=== PATIENT | female | born 1950 | race Two or more races ===

== ENCOUNTER 2021-12-11 09:17 | Day surgery (SDC) | payer MEDICARE ==
[2021-12-11] MEDS ORDERED: Depo-Medrol 40 MG/ML IM ONE (09:18)
[2021-12-11] MEDS ORDERED: BUPIVACAINE 0.5% VIAL IJ ONE (09:18)
[2021-12-11] MEDS ORDERED: DIPRIVAN 200 MG/20 ML IV ONE (11:57)
[2021-12-11] MEDS ORDERED: Lactated Ringers 1,000 ML IV ONE (13:36)
--- NOTE | 2021-12-11 13:50 | XRAY ---
Indication: Bilateral SI joint injection. Intraoperative fluoroscopy provided for 23 seconds. 4 digital spot image submitted for interpretation demonstrates posterior needle tip projecting over the inferior left and right SI joint. Correlate with intraoperative findings/report.
--- NOTE | 2021-12-11 14:22 | XRAY ---
23 seconds of fluoroscopy was used in surgery for a bilateral sacroiliac joint injection.
== END 2021-12-11 12:22 | disposition home or self-care (01) ==
LOC: SDC-PAIN 09:17
PROVIDERS: ATTEND Psychiatry & Neurology Pain Medicine
DX: M46.1 Sacroiliitis, not elsewhere classified (principal); E11.9 Type 2 diabetes mellitus without complications; Z79.899 Other long term (current) drug therapy
CPT/HCPCS: 27096; 72202; 77002; 82947; J1030; J2704; G0260

== ENCOUNTER 2022-01-08 09:18 | Day surgery (SDC) | payer MEDICARE ==
[2022-01-08] MEDS ORDERED: Decadron 4 MG INJ IV ONE (09:19)
[2022-01-08] MEDS ORDERED: LIDOCAINE HCL 2% 100 MG/5 ML IJ ONE (09:19)
[2022-01-08] MEDS ORDERED: DIPRIVAN 200 MG/20 ML IV ONE ×2 (10:36→10:57)
[2022-01-08] MEDS ORDERED: Lactated Ringers 1,000 ML IV ONE (11:40)
--- NOTE | 2022-01-08 12:30 | XRAY ---
Indication: Left C2-C4 MBB. Intraoperative fluoroscopy provided for 36 seconds. 4 digital spot images submitted for interpretation demonstrates posterior needle tips projecting over the expected left C2-C4 nerve roots. Correlate with intraoperative findings/report. Incidental partially visualized mid to lower anterior cervical fusion hardware with intervertebral spacers.
--- NOTE | 2022-01-08 12:34 | XRAY ---
36 seconds fluoroscopy time in surgery for left C2-C4 MBB.
== END 2022-01-08 11:33 | disposition home or self-care (01) ==
LOC: SDC-PAIN 09:18
PROVIDERS: ATTEND Psychiatry & Neurology Pain Medicine
DX: M47.812 Spondylosis without myelopathy or radiculopathy, cervical region (principal); E11.9 Type 2 diabetes mellitus without complications
CPT/HCPCS: 64490; 64491; 72040; 77002; 82947; J1100; J2704

== ENCOUNTER 2022-02-05 07:47 | Day surgery (SDC) | payer MEDICARE ==
[2022-02-05] MEDS ORDERED: LIDOCAINE HCL 2% 100 MG/5 ML IJ ONE (08:50)
[2022-02-05] MEDS ORDERED: Depo-Medrol 40 MG/ML IM ONE (08:50)
[2022-02-05] MEDS ORDERED: Lactated Ringers 1,000 ML IV ONE (09:00)
[2022-02-05] MEDS ORDERED: DIPRIVAN 200 MG/20 ML IV ONE (09:05)
--- NOTE | 2022-02-05 11:26 | XRAY ---
Indication: Bilateral L4-S1 MBB. Intraoperative fluoroscopy provided for 17 seconds. Single digital spot image submitted for interpretation demonstrates posterior needle tips projecting over the expected left and right L4-S1 nerve roots. Correlate with intraoperative findings/report.
--- NOTE | 2022-02-05 12:31 | XRAY ---
17 seconds of fluoroscopy was used in surgery for a bilateral L4-S1 MBB.
== END 2022-02-05 09:35 | disposition home or self-care (01) ==
LOC: SDC-PAIN 07:47
PROVIDERS: ATTEND Psychiatry & Neurology Pain Medicine
DX: M47.816 Spondylosis without myelopathy or radiculopathy, lumbar region (principal); E11.9 Type 2 diabetes mellitus without complications; Z79.899 Other long term (current) drug therapy
CPT/HCPCS: 64493; 64494; 72020; 77002; 82947; J1030; J2704

== ENCOUNTER 2022-03-20 09:07 | Day surgery (SDC) | payer MEDICARE ==
[2022-03-20] MEDS ORDERED: Depo-Medrol 40 MG/ML IM ONE (09:08)
[2022-03-20] MEDS ORDERED: BUPIVACAINE 0.5% VIAL IJ ONE (09:08)
[2022-03-20] MEDS ORDERED: Lactated Ringers 1,000 ML IV ONE (10:28)
[2022-03-20] MEDS ORDERED: DIPRIVAN 200 MG/20 ML IV ONE (11:13)
--- NOTE | 2022-03-20 13:37 | XRAY ---
Indication: Bilateral L4-S1 MBB. Intraoperative fluoroscopy provided for 7 seconds. Single digital spot image submitted for interpretation demonstrates posterior needle tips projecting over the expected left and right L4-S1 nerve roots. Correlate with intraoperative findings/report.
--- NOTE | 2022-03-20 13:45 | XRAY ---
7 seconds fluoroscopy time in surgery for bilateral L4-S1 MBB.
== END 2022-03-20 11:38 | disposition home or self-care (01) ==
LOC: SDC-PAIN 09:07
PROVIDERS: ATTEND Psychiatry & Neurology Pain Medicine
DX: M47.816 Spondylosis without myelopathy or radiculopathy, lumbar region (principal); E11.9 Type 2 diabetes mellitus without complications; Z79.899 Other long term (current) drug therapy
CPT/HCPCS: 64493; 64494; 72020; 77002; 82947; J1030; J2704

== ENCOUNTER → 2022-04-02 | Day surgery (SDC) | payer MEDICARE ==
[~2022-04-02] MED LIST: BUPIVACAINE 0.5% VIAL IJ ONE; DIPRIVAN 200 MG/20 ML IV ONE; Depo-Medrol 40 MG/ML IM ONE; Versed 2 MG/2 ML Injection ONE; Xylocaine 1% Vial 30 ML PF IJ ONE; Xylocaine-Mpf 2% 5 Ml Vial ONE
--- NOTE | 2022-04-02 18:25 | XRAY ---
Indication: Right L4-S1 RFA. Intraoperative fluoroscopy provided for 19 seconds. 4 digital spot image submitted for interpretation demonstrates posterior needle tips projecting over the expected right L4-S1 nerve roots. Correlate with intraoperative findings/report.
--- NOTE | 2022-04-02 18:29 | XRAY ---
19 seconds of fluoroscopy was used in surgery for a right L4-S1 RFA.
== END ==
LOC: SDC-PAIN 13:10
PROVIDERS: ATTEND Psychiatry & Neurology Pain Medicine
DX: M47.816 Spondylosis without myelopathy or radiculopathy, lumbar region (principal); E11.9 Type 2 diabetes mellitus without complications; Z79.899 Other long term (current) drug therapy
CPT/HCPCS: 64635; 64636; 72100; 77002; 82947; J1030; J2001; J2250; J2704

== ENCOUNTER 2022-04-09 11:57 | Day surgery (SDC) | payer MEDICARE ==
[2022-04-09] MEDS ORDERED: Xylocaine 1% Vial 30 ML PF IJ ONE (11:58)
[2022-04-09] MEDS ORDERED: BUPIVACAINE 0.5% VIAL IJ ONE (11:58)
[2022-04-09] MEDS ORDERED: Depo-Medrol 40 MG/ML IM ONE (11:58)
[2022-04-09] MEDS ORDERED: Versed 2 MG/2 ML Injection ONE (13:07)
[2022-04-09] MEDS ORDERED: Lactated Ringers 1,000 ML IV ONE (13:57)
[2022-04-09] MEDS ORDERED: DIPRIVAN 200 MG/20 ML IV ONE (14:40)
--- NOTE | 2022-04-09 16:33 | XRAY ---
Indication: Left L4-S1 RFA. Intraoperative fluoroscopy provided for 20 seconds. 3 digital spot image submitted for interpretation demonstrates posterior needle tips projecting over the expected left L4-S1 nerve roots. Correlate with intraoperative findings/report.
--- NOTE | 2022-04-09 17:09 | XRAY ---
20 seconds of fluoroscopy was used in surgery for a left L4-S1 RFA.
== END 2022-04-09 15:15 | disposition home or self-care (01) ==
LOC: SDC-PAIN 11:57
PROVIDERS: ATTEND Psychiatry & Neurology Pain Medicine
DX: M47.816 Spondylosis without myelopathy or radiculopathy, lumbar region (principal); E11.9 Type 2 diabetes mellitus without complications; Z79.899 Other long term (current) drug therapy
CPT/HCPCS: 64635; 64636; 72100; 77002; 82947; J1030; J2001; J2250; J2704